=== PATIENT | male | born 1980 | race Caucasian/White ===

== ENCOUNTER 2018-02-02 21:36 | Emergency (ER) | payer MEDICAID ==
[2018-02-02 22:22] VITALS: BP 130/71
== END 2018-02-03 00:45 | disposition left against medical advice (07) ==
LOC: ER 21:36
DX: Z53.21 Procedure and treatment not carried out due to patient leaving prior to being seen by health care provider (principal)

== ENCOUNTER 2018-10-25 20:35 | Emergency (ER) | payer SELFPAY ==
[2018-10-25] MEDS ORDERED: PREDNISONE 20 MG TABLET PO ONE (21:12)
[2018-10-25] MEDS ORDERED: IPRATROPIUM/ALBUTEROL 0.5-2.5 MG/3 ML AMPUL NEB ONE (21:13)
[2018-10-25] MEDS ORDERED: ACETAMINOPHEN 325 MG TABLET PO ONE (21:19)
[2018-10-25 21:37] LABS: A TYPE INFLUENZA AG NEGATIVE (NEGATIVE); B INFLUENZA AG NEGATIVE (NEGATIVE)
[2018-10-25] MEDS ORDERED: ALBUTEROL SULFATE HFA (90 MCG/PUFF) 8 GM MDI (1 MDI/ER DISP) IH ONE (22:26)
[2018-10-25 22:37] VITALS: BP 123/81
--- NOTE | 2018-10-25 23:24 | ER Document Report ---
Entered by MARIA ELENA TELLO SCRIBE 10/25/182120 Acting as scribe for:RANDY ALONZO MD ED General - General Chief Complaint: Flu Symptoms Stated Complaint: COUGH Time Seen by Provider: 10/25/18 21:04 Mode of Arrival: Ambulatory Information source: Patient Notes: Patient is a 38-year-old male presenting to the emergency department complaining of multiple symptoms including cough, congestion, headache and fever. Patient states that approximately 1 week ago he developed cough, congestion and a headache. He states approximately 3 days ago he developed fever. Patient also complains of chest tightness. Patient did not receive a flu vaccine this year. TRAVEL OUTSIDE OF THE [place] IN LAST 30 DAYS: No - Related Data Allergies/Adverse Reactions: No Known Allergies Allergy (Verified 09/21/13 13:57) Past Medical History - General Information source: Patient - Social History Smoking Status: Current Every Day Smoker Cigarette use (# per day): Yes - 1 PPD Chew tobacco use (# tins/day): No Drug Abuse: None Family History: Reviewed & Not Pertinent Patient has suicidal ideation: No Patient has homicidal ideation: No - Immunizations Hx Diphtheria, Pertussis, Tetanus Vaccination: No Review of Systems - Review of Systems Constitutional: See HPI, Fever EENT: See HPI, Nose congestion Cardiovascular: See HPI, Chest pain - Described as chest tightness. Respiratory: See HPI, Cough Gastrointestinal: No symptoms reported Genitourinary: No symptoms reported Male Genitourinary: No symptoms reported Musculoskeletal: No symptoms reported Skin: No symptoms reported Hematologic/Lymphatic: No symptoms reported Neurological/Psychological: No symptoms reported -: Yes All other systems reviewed and negative Physical Exam - Vital signs Vitals: Temp Pulse Resp BP Pulse Ox 98.4 F 111 H 18 141/84 H 94 10/25/18 20:40 10/25/18 20:40 10/25/18 20:40 10/25/18 20:40 10/25/18 20:40 - Notes Notes: GENERAL: Alert, interacts well. No acute distress. HEAD: Normocephalic, atraumatic. EYES: Pupils equal, round, and reactive to light. Extraocular movements intact. ENT: Oral mucosa moist, tongue midline. Nares patent, no nasal septal hematoma, Left TM retracted and injected. Right ear canal occluded with soft cerumen. Posterior oropharynx is clear. NECK: Full range of motion. Supple. Trachea midline. LUNGS: Wheezes on the left. Diffuse rhonchi. No respiratory distress. HEART: Regular rate and rhythm. No murmurs, gallops, or rubs. ABDOMEN: Soft, non-tender. Non-distended. Bowel sounds present in all 4 quadrants. EXTREMITIES: Moves all 4 extremities spontaneously. NEUROLOGICAL: Alert and oriented x3. Normal speech. PSYCH: Normal affect, normal mood. SKIN: Warm, diaphoretic, normal turgor. No rashes or lesions noted. Course - Re-evaluation Re-evalutation: 10/25/18 22:24 Patient states his breathing feels much better and the congestion in his head feels better. He still does have some expiratory wheezes on the left, but the rhonchi is mostly cleared. - Vital Signs Vital signs: Temp Pulse Resp BP Pulse Ox 98.4 F 111 H 18 141/84 H 94 10/25/18 20:40 10/25/18 20:40 10/25/18 20:40 10/25/18 20:40 10/25/18 20:40 Discharge - Discharge Clinical Impression: Viral upper respiratory tract infection with cough, Influenza-like illness, Acute bronchitis with bronchospasm Condition: Stable Disposition: HOME, SELF-CARE Additional Instructions: Bronchitis with Bronchospasm (Wheezing) You have bronchitis with bronchospasm (wheezing). Sometimes people develop wheezing with a chest cold. This occurs either because of an underlying tendency toward asthma or because the virus itself irritates the bronchial tubes. This irritation causes cough, shortness of breath, and wheezing. Emergency treatment of bronchospasm may include adrenaline shots or bronchodilator aerosol. You may feel lightheaded and have a rapid pulse for an hour or two. Rest and get plenty of fluids. At home, we'll treat you with a bronchodilator inhaler. Corticosteroids may be required for some patients. Until you recover, avoid chemical fumes, dusts, pollens, and exercising in very cold or dry air. If you smoke, stop now! Most cases of bronchitis get better without antibiotics. We prescribe antibiotics when we believe bacteria are damaging your airways, or if there's high risk the bronchitis will worsen into pneumonia. Increase your fluid intake. A cool mist humidifier may make your lungs more comfortable. An expectorant (cough medicine that loosens phlegm) can help. Repeated episodes of bronchitis and bronchospasm may result in lung damage -- for example, chronic bronchitis, recurrent pneumonias, or emphysema. If you develop a fever, increased wheezing, chest pain, or severe shortness of breath, you should contact the doctor immediately. Upper Respiratory Illness You have a viral infection of the respiratory passages -- a "cold." This common infection causes nasal congestion, drainage, and often sore throat and cough. It is caused by a virus and is highly contagious. The disease usually lasts a week or more, though the worst symptoms are usually over in 3 or 4 days. There is no "cure" for the viral infection -- it must run its course. If there is a complication, such as bacterial infection in the nose, sinuses, middle ear, or bronchial tubes, antibiotics may be required, but antibiotics won't affect the virus. If you smoke, you should STOP!! Drink plenty of fluids. A humidifier may help. An expectorant medication or decongestant may make you more comfortable. Use acetaminophen or ibuprofen for fever or aches. See the doctor if fever persists over two or three days, if there is any significant worsening of your symptoms, or if you simply fail to improve as expected. Start the prednisone tomorrow. Use the inhaler--2 puffs every 4 hours for wheezing as needed. Drink plenty of fluids and get plenty of rest. Take Tylenol and ibuprofen for fever and aches and pains. Use [id number] cough and cold medications for your congestion and cough. Follow-up with a local medical doctor if not improving. RETURN TO THE EMERGENCY ROOM IF ANY NEW OR WORSENING SYMPTOMS. Prescriptions: Prednisone [Deltasone 10 mg Tablet] 10 mg PO ASDIR PRN #21 tablet PRN Reason: I personally performed the services described in the documentation, reviewed and edited the documentation which was dictated to the scribe in my presence, and it accurately records my words and actions.
== END 2018-10-25 22:37 | disposition home or self-care (01) ==
LOC: ER 20:35
DX: J10.1 Influenza due to other identified influenza virus with other respiratory manifestations (principal); J06.9 Acute upper respiratory infection, unspecified; R07.9 Chest pain, unspecified; F17.210 Nicotine dependence, cigarettes, uncomplicated
CPT/HCPCS: 94640; 99283; 87804; J7512; J3490; J7620